=== PATIENT | female | born 1960 | race Caucasian/White ===

== ENCOUNTER → 2017-02-13 | Outpatient (CLI) | payer BC ==
[2017-02-13 09:04] LABS: BASOPHILS % (AUTO) 1 % (0-2); EOSINOPHILS # (AUTO) 0.1 10^3uL; EOSINOPHILS % (AUTO) 2 % (0-4); LYMPHOCYTES # (AUTO) 1.3 X10^3; MEAN CORPUSCULAR HEMOGLOBIN 28.8 PG (26.0-34.0); MEAN CORPUSCULAR HGB CONC 32.5 g/dL (31.0-37.0); MEAN CORPUSCULAR VOLUME 89 FL (80-100); MEAN PLATELET VOLUME 9.8 FL (6.0-9.5); MONOCYTES # (AUTO) 0.5 X10^3; MONOCYTES % (AUTO) 10 % (3-11); NEUTROPHILS # (AUTO) 2.7 X10^3; NEUTROPHILS % (AUTO) 59 % (51-67); PLATELET COUNT 290 10^3uL (150-450); WHITE BLOOD COUNT 4.62 10^3uL (4.0-11.0)
[2017-02-13 10:07] LABS: ALBUMIN 4.6 g/dL (3.4-5.0); ANION GAP 17.1 MEQ/L (3-15); CALCULATED IONIZED CALCIUM 4.1 mg/dL (3.8-4.6); TOTAL PROTEIN 7.6 g/dL (6.4-8.5)
--- NOTE | 2017-02-15 10:47 | Diagnostic Imaging Report ---
INDICATION: Screening mammogram COMPARISON: 11/24/2014, 11/18/2013 FAMILY HISTORY: Positive in grandmother and mother Bilateral digital mammography is performed with computer assisted detection (CAD) software utilization. There are no reported clinical signs and/or symptoms of breast cancer. The breast tissue pattern is composed of a mild amount of diffuse fibroglandular tissue on background of fatty tissue. No dominant mass, suspicious microcalcification, or other significant abnormality is identified. IMPRESSION: 1. Negative for malignancy. Follow-up mammography in one year is recommended. ACR BI-RADS Category 1: Negative Result letter will be mailed to the patient. Note: At least 10% of breast cancer is not imaged by mammography. Dictated by: Dictated on workstation # [id number]
== END ==
LOC: RAD 08:26
PROVIDERS: ATTEND Obstetrics & Gynecology
DX: Z00.00 Encounter for general adult medical examination without abnormal findings (principal); Z12.31 Encounter for screening mammogram for malignant neoplasm of breast; E03.9 Hypothyroidism, unspecified
CPT/HCPCS: 36415; 80053; 80061; 84443; 85025; 86803; G0202

== ENCOUNTER 2017-03-21 09:07 | Day surgery (SDC) | payer BC ==
[~2017-03-21] VITALS: Ht 160 cm; Wt 60.5 kg
[~2017-03-21 09:07] MED LIST: LACTATED RINGERS 1,000 ML IV SCH; SODIUM CHLORIDE FLUSH 3 ML SYR IV PRN
--- OUTSIDE RECORDS SUMMARY | 2017-03-21 09:11 | XMS REPORT | Summary of Care ---
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, 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 Medications Name Dates Details Medication not documented Allergies and Adverse Reactions Name Dates Details Allergy history not documented Status: Procedures Procedure Dates Details Procedures not documented Immunization Name Dates Details Immunizations not documented Social History Name Dates Details Unknown if ever smoked Vital Signs Date Test Result Details No Known Vitals to report Results Date Description Value Details Results not documented Plan of Care Name Dates Details Planned Observations Planned Goals not documented Planned Encounters Appointment; Provider: Demond Moraels On 12-Feb-2018 13:30 Instructions Name Dates Details Instructions not documented Encounters Appointment; Uyen Walls P.A. Encounter Diagnosis: Problem not documented On 24-Jan-2016 09:15
[2017-03-21 09:24] VITALS: BP 132/69
[2017-03-21] MEDS ORDERED: ESTR0.5T PO (09:36)
[2017-03-21] MEDS ORDERED: LEVO112T4 PO (09:36)
[2017-03-21] MEDS ORDERED: NORE0.3518 PO (09:36)
[2017-03-21] MEDS ORDERED: MIDAZOLAM 2 MG/2 ML (VERSED) VIAL ONE (11:09)
[2017-03-21] MEDS ORDERED: PROPOFOL 20 ML IV ONE (11:09)
[2017-03-21] MEDS ORDERED: ALFENTANIL 500 MCG/ML (ALFENTA) 5 ML AMP IV ONE (11:09)
[2017-03-21 11:43] VITALS: BP 96/57
[2017-03-21 12:11] VITALS: BP 114/57
--- NOTE | 2017-03-21 12:43 | OPERATIVE REPORT ---
DATE OF OPERATION: 03/21/2017 PRE-OPERATIVE DIAGNOSIS: Screening colonoscopy. POST-OPERATIVE DIAGNOSIS: Normal colonoscopy. OPERATIVE PROCEDURE: Total colonoscopy. SURGEON: Javi Henry MD ANESTHESIA: Monitored anesthesia care. FINDINGS: 1. The bowel prep was good. 2. No neoplasia, angiodysplasia, diverticula, or inflammation were seen. INDICATION: Mrs. Garcia is a 56-year-old referred by Dr. Charles Martinez for colonoscopy screening. She has not had any bowel habit changes and her family history is negative for colorectal cancer. DESCRIPTION OF PROCEDURE: The patient was informed of the risks and benefits and agreed to proceed. She was placed in the left lateral decubitus position and administered IV sedation. When properly sedated a rectal exam was performed, which was normal. The lighted endoscope was passed into the rectum and slowly advanced along the colon to the cecum. The ileocecal valve and the appendiceal orifice were easily seen. The scope was slowly brought back through the ascending, transverse, descending, and sigmoid colon. No polyps or neoplasia were noted. The rectum appeared normal on regular view and retroflexion. The scope was removed completing the procedure. The patient tolerated the procedure without complications. With this normal colonoscopy, I recommend a repeat screening colonoscopy in 10 years.
== END 2017-03-21 12:15 | disposition home or self-care (01) ==
LOC: ASC 09:07
PROVIDERS: ATTEND Surgery
DX: Z12.11 Encounter for screening for malignant neoplasm of colon (principal); E03.9 Hypothyroidism, unspecified; K21.9 Gastro-esophageal reflux disease without esophagitis
CPT/HCPCS: 45378; J2250; J7120